=== PATIENT | female | born 1950 | race Hispanic/Latino ===

== ENCOUNTER 2017-09-10 06:23 | Day surgery (SDC) | payer OTHER ==
[2017-09-09 15:49] VITALS: BP 130/73
[2017-09-09 16:04] LABS: CREATININE 1.1 mg/dL (0.5-1.5)
[~2017-09-10] VITALS: Ht 152.4 cm; Wt 78.6 kg
[2017-09-10] VITALS (18 sets, daily range): BP systolic 81–121; BP diastolic 30–69
[2017-09-10] MEDS: CEFAZOLIN SODIUM 1 GM VIAL IVP SCH ×2 (06:00→08:45)
[~2017-09-10 06:23] MED LIST: ASPI-1181 PO; GLIP5TAB11 PO; VALS160T2 PO
[2017-09-10] MEDS ORDERED: SODIUM CHLORIDE 0.9% 1000ML 1,000 ML IV ONE (06:54)
[2017-09-10] MEDS ORDERED: CEFAZOLIN SODIUM 1 GM VIAL ONE (07:41)
[2017-09-10] MEDS ORDERED: PROPOFOL 10 MG/ML 20ML VIAL IV ONE (08:39)
[2017-09-10] MEDS ORDERED: MIDAZOLAM HCL 1 MG/ML 2ML VIAL ONE (08:39)
[2017-09-10] MEDS ORDERED: FENTANYL CITRATE PF 50 MCG/1 ML 2ML VIAL ONE (08:39)
[2017-09-10] MEDS ORDERED: MORPHINE SULFATE 2 MG/ML 1ML SYG ONE (09:49)
== END 2017-09-10 12:40 | disposition home or self-care (01) ==
LOC: DAH 06:23
PROVIDERS: ATTEND Orthopaedic Surgery
DX: G56.01 Carpal tunnel syndrome, right upper limb (principal); I10 Essential (primary) hypertension; M19.90 Unspecified osteoarthritis, unspecified site; E66.9 Obesity, unspecified; F41.9 Anxiety disorder, unspecified; F32.9 Major depressive disorder, single episode, unspecified; E55.9 Vitamin D deficiency, unspecified; E11.36 Type 2 diabetes mellitus with diabetic cataract; E11.51 Type 2 diabetes mellitus with diabetic peripheral angiopathy without gangrene; Z68.34 Body mass index [BMI] 34.0-34.9, adult; Z79.899 Other long term (current) drug therapy; Z98.890 Other specified postprocedural states
CPT/HCPCS: 36415; 64721; 80048; 82948 ×2; A4218; A4649; A4930 ×3; A6223; J0690 ×2; J2250; J2704; J3010; J7030

== ENCOUNTER → 2018-07-21 | Outpatient (CLI) | payer OTHER ==
[~2018-07-21] MED LIST changes: +ACET1TAB12 PO; +GABA-531 PO; +VALS1TAB4 PO
== END | disposition home or self-care (01) ==
LOC: RAH 10:57
PROVIDERS: ATTEND Family Medicine
DX: M48.02 Spinal stenosis, cervical region (principal); M50.10 Cervical disc disorder with radiculopathy, unspecified cervical region
CPT/HCPCS: 72141

== ENCOUNTER → 2018-10-14 | Outpatient (CLI) | payer OTHER | END | disposition home or self-care (01) | LOC: RAH 14:26 | PROVIDERS: ATTEND Physical Medicine & Rehabilitation | DX: M25.511 Pain in right shoulder (principal) | CPT/HCPCS: 73030 ==

== ENCOUNTER 2018-10-31 14:09 | Emergency (ER) | payer OTHER ==
[2018-10-31] MEDS ORDERED: KETOROLAC TROMETHAMINE 30MG/ML ONE (15:08)
[2018-10-31] MEDS ORDERED: ACETAMINOPHEN EXTRA STRENGTH 500 MG TABLET ONE (15:09)
[2018-10-31] MEDS ORDERED: LIDOCAINE 5% TOPICAL PATCH TP SCH (17:00)
== END 2018-10-31 16:28 | disposition home or self-care (01) ==
LOC: EDH 14:09
DX: S16.1XXA Strain of muscle, fascia and tendon at neck level, initial encounter (principal); I10 Essential (primary) hypertension; E11.9 Type 2 diabetes mellitus without complications; Z98.890 Other specified postprocedural states; V59.49XA Driver of pick-up truck or van injured in collision with other motor vehicles in traffic accident, initial encounter; Y93.89 Activity, other specified; Y92.410 Unspecified street and highway as the place of occurrence of the external cause; Y99.8 Other external cause status
CPT/HCPCS: 96372; 99283; J1885

== ENCOUNTER → 2019-01-25 | Outpatient (CLI) | payer OTHER | END | disposition home or self-care (01) | LOC: RAH 09:08 | PROVIDERS: ATTEND Family Medicine | DX: E04.2 Nontoxic multinodular goiter (principal) | CPT/HCPCS: 76536 ==

== ENCOUNTER → 2019-10-17 | Outpatient (CLI) | payer OTHER ==
[~2019-10-17] MED LIST changes: -ASPI-1181 PO; +ASPI-1443 PO
== END | disposition home or self-care (01) ==
LOC: RAH 13:35
PROVIDERS: ATTEND Family Medicine
DX: Z12.31 Encounter for screening mammogram for malignant neoplasm of breast (principal)
CPT/HCPCS: 77067

== ENCOUNTER → 2020-03-27 | Outpatient (CLI) | payer OTHER | END | disposition home or self-care (01) | LOC: RAH 13:29 | PROVIDERS: ATTEND Physical Medicine & Rehabilitation | DX: M26.621 Arthralgia of right temporomandibular joint (principal) | CPT/HCPCS: 70486 ==

== ENCOUNTER → 2020-10-21 | Outpatient (CLI) | payer OTHER | END | disposition home or self-care (01) | LOC: RAH 09:31 | PROVIDERS: ATTEND Family Medicine | DX: Z12.31 Encounter for screening mammogram for malignant neoplasm of breast (principal) | CPT/HCPCS: 77067 ==

== ENCOUNTER → 2021-10-22 | Outpatient (CLI) | payer OTHER | LOC: RAH 09:18 | PROVIDERS: ATTEND Family Medicine | DX: Z12.31 Encounter for screening mammogram for malignant neoplasm of breast (principal) | CPT/HCPCS: 77067 ==

== ENCOUNTER 2022-05-20 18:57 | Emergency (ER) | payer OTHER ==
[~2022-05-20] VITALS: Ht 152.4 cm; Wt 65.8 kg
[2022-05-20 20:40] VITALS: BP 158/75
[2022-05-20] MEDS ORDERED: MELO10PO MC (21:49)
[2022-05-20] MEDS ORDERED: IBUPROFEN 400 MG TABLET ONE (22:41)
[2022-05-20] MEDS ORDERED: IBUPROFEN 400 MG TABLET PO ONE (23:00)
== END 2022-05-20 22:35 | disposition home or self-care (01) ==
LOC: EDH 18:57
DX: S82.892A Other fracture of left lower leg, initial encounter for closed fracture (principal); E11.9 Type 2 diabetes mellitus without complications; I10 Essential (primary) hypertension; Z98.890 Other specified postprocedural states; Z79.899 Other long term (current) drug therapy; Z79.82 Long term (current) use of aspirin; Z79.84 Long term (current) use of oral hypoglycemic drugs; X58.XXXA Exposure to other specified factors, initial encounter; Y93.89 Activity, other specified; Y92.89 Other specified places as the place of occurrence of the external cause; Y99.8 Other external cause status
CPT/HCPCS: 73610; 73630

== ENCOUNTER → 2023-05-07 | Emergency (ER) | payer OTHER ==
[~2023-05-07] VITALS: Ht 152.4 cm; Wt 59.9 kg
[~2023-05-07] MED LIST changes: +CEPH500B PO; -GLIP5TAB11 PO; +GLIP5TAB15 PO; +MELO10PO MC
[2023-05-07 14:50] VITALS: BP 145/76; PULSE 72; RESP 18
[2023-05-07 17:48] LABS: APPEARANCE,URINE CLEAR (CLEAR); BILIRUBIN,URINE NEGATIVE (NEGATIVE); COLOR,URINE LIGHT-YELLOW (YELLOW); GLUCOSE, URINE (UA) NEGATIVE (NEGATIVE); KETONES,URINE NEGATIVE (NEGATIVE); LEUKOCYTE ESTERASE ,URINE 75 Leu/uL (NEGATIVE); NITRATE,URINE NEGATIVE (NEGATIVE); OCCULT BLOOD,URINE NEGATIVE (NEGATIVE); PH,URINE 5.5 (5.0-8.0); PROTEIN,URINE NEGATIVE (NEGATIVE); UROBILINOGEN,URINE 0.2 mg/dL (0.2-1.0)
[2023-05-07 17:49] LABS: ADD UA MICROSCOPIC YES
[2023-05-07 17:51] LABS: SQUAMOUS EPITHELIAL CELL,UR RARE /HPF (0-2)
== END ==
LOC: EDH 14:39
DX: N81.10 Cystocele, unspecified (principal); N39.0 Urinary tract infection, site not specified; E11.9 Type 2 diabetes mellitus without complications; I10 Essential (primary) hypertension
CPT/HCPCS: 81001; 87088

== ENCOUNTER → 2024-02-01 | Outpatient (CLI) | payer OTHER | END | disposition home or self-care (01) | LOC: RAH 15:18 | PROVIDERS: ATTEND Family Medicine | DX: Z12.31 Encounter for screening mammogram for malignant neoplasm of breast (principal); R92.323 Mammographic fibroglandular density, bilateral breasts | CPT/HCPCS: 77067 ==

== ENCOUNTER → 2024-10-11 | Outpatient (CLI) | payer OTHER ==
--- NOTE | 2024-10-12 13:32 | HMCSR ---
APPROVED REPORT EXAM: Two-dimensional and M-mode echocardiogram with Doppler and color Doppler. INDICATION ICD: Q21.12 2D Dimensions RVDd3.0 cmLVEF(%)62.6 (>50%)LA ESV INDEX (BP)32.71 mL/m2 IVSd0.8 (0.7-1.1cm)FS(%)33 % LVDd4.0 (3.8-5.6cm)LA (2D)3.4 (1.6-4.0cm) PWd1.0 (0.7-1.1cm)Ao Root(2D)2.9 (2.0-3.7cm) IVSs0.8 cmLVOT diam2.0 (1.8-2.4cm) LVDs2.7 (2.5-4.0cm) PWs0.9 cm M-Mode Dimensions EPSS0.6 cm LA (MM)3.2 (1.6-4.0cm) Ao Root(MM)3.1 (2.0-3.7cm) Aortic Valve AoV Vmax1.4 m/[place] GR7.9 mmHgLVOT Vmax1.0 m/s AoV VTI0.3 mAo Mean GR3.8 mmHgLVOT VTI0.25 m BHAVIN (VMAX)2.50 cm2AVA (VTI) 2.5 cm2 Mitral Valve MV E Vmax83.7 cm/sDECEL Fewy723 ms MV A Vmax85.4 cm/sP 1/2 T58 ms E/A ratio1.0MVA (PHT)3.8 cm2 TDI E/E' Zjklxs53.9E/E' Lateral8.2 Medial E' Peak V6.47 cm/sLateral E' Peak V10.17 cm/s Pulmonary Valve PV Vmax1.0 m/sPV Mean GR2.3 mmHg PV Peak GR3.7 mmHg Left Ventricle The left ventricle is normal size. There is normal LV segmental wall motion. There is normal left nguyễn tricular wall thickness. LVEF is 60-65%. The left ventricular diastolic function is normal. Right Ventricle The right ventricle is normal size. The right ventricular systolic function is normal. Atria The left atrium size is normal. No evidence of PFO/ASD by agitated saline. The right atrium size is n ormal. Aortic Valve The aortic valve is normal in structure. No aortic regurgitation is present. There is no aortic valvu lar stenosis. Mitral Valve The mitral valve is normal in structure. There is trace of mitral valve regurgitation noted. There is no mitral valve stenosis. Tricuspid Valve The tricuspid valve is normal in structure. There is no tricuspid valve regurgitation noted. Pulmonic Valve The pulmonary valve is normal in structure. There is no pulmonic valvular regurgitation. Great Vessels The aortic root is normal in size. The IVC is normal in size and collapses >50% with inspiration. Pericardium There is no pericardial effusion. Other Information Quality : Adequate Conclusion The left ventricle is normal size. LVEF is 60-65% with normal LV segmental wall motion. The left ventricular diastolic function is normal. The right ventricular systolic function is normal. Both atria are normal in size. No hemodynamically significant valvular abnormalities. There is no pericardial effusion.
== END | disposition home or self-care (01) ==
LOC: RAH 12:50
PROVIDERS: ATTEND Student in an Organized Health Care Education/Training Program
DX: Q21.12 Patent foramen ovale (principal); R09.89 Other specified symptoms and signs involving the circulatory and respiratory systems
CPT/HCPCS: 93308; A4216; 93306